=== PATIENT | female | born 1990 | race African-American/Black ===

== ENCOUNTER 2017-10-18 03:22 | Emergency (ER) | payer MEDICAID, OTHER ==
[~2017-10-18] VITALS: Ht 162.6 cm; Wt 105.0 kg
[2017-10-18 03:23] VITALS: BP 144/90; PULSE 113; RESP 16; TEMP 98.9; O2SAT 98
[2017-10-18] MEDS ORDERED: DICL75TA PO (04:34)
[2017-10-18] MEDS ORDERED: BACT800T5 PO (04:34)
--- NOTE | 2017-10-18 04:41 | PD ---
HPI Chief Complaint: Skin Problem Time Seen by Provider: 04:22 Travel History International Travel<30 days: No Contact w/Intl Traveler<30days: No Traveled to known affect area: No History of Present Illness HPI 27-year-old black female presents to emergency Department with complaints of right little toe pain today. She states that she is visiting a friend here in [facility] for the next week. She noticed some tenderness and swelling to her right little toe as she was walking today. When she went to bed and woke up it was increasingly painful, red and swollen. She presents today for evaluation. Patient denies any fever or chills. No direct trauma. No numbness, tingling or weakness. No prior injury. Denies diabetes. PFSH Past Medical History Diminished Hearing: No Gastrointestinal Disorders: Yes (Chrons) Tetanus Vaccination: Unknown Influenza Vaccination: No ?: Unknown LMP: 09/21/2017 Past Surgical History Gynecologic Surgery: Yes (cyst removed from ovary) Social History Alcohol Use: Yes (occasionally) Tobacco Use: No Substance Use: No Allergies-Medications (Allergen,Severity, Reaction): Coded Allergies: No Known Allergies (Unverified , 10/18/17) Reported Meds & Prescriptions Reported Meds & Active Scripts Active Diclofenac Sodium DR (Diclofenac Sodium) 75 Mg Tabdr 75 Mg PO BID Bactrim DS (Sulfamethoxazole-Trimethoprim) 800-160 Mg Tab 1 Tab PO BID Review of Systems General / Constitutional: No: Fever Eyes: No: Visual changes HENT: No: Headaches Cardiovascular: No: Chest Pain or Discomfort Respiratory: No: Shortness of Breath Gastrointestinal: No: Abdominal Pain Genitourinary: No: Dysuria Musculoskeletal: Positive: Edema, Pain, No: Limited ROM, Weakness Skin: Positive Rash (redness) Neurologic: No: Weakness Psychiatric: No: Depression Endocrine: No: Polydipsia Hematologic/Lymphatic: No: Easy Bruising Physical Exam Narrative GENERAL: This is a well-nourished, well-developed patient, in no apparent distress. SKIN: No rashes, ecchymoses or lesions. Warm and dry. HEAD: Atraumatic. Normocephalic. EYES: PERRL, EOMI, no discharge or injection. No scleral icterus. EARS: Clear NOSE: Nasal turbinates appear normal. THROAT: Mucosa pink and moist. Airway patent. NECK: Trachea midline. supple, moves head freely. LUNGS: Clear to auscultation. CV: Regular in rhythm. ABDOMEN: Soft nontender. EXT: No clubbing cyanosis. Examination right lower extremity reveals mild erythema and edema around the base of the nailbed of the little toe. There is no fluctuance or pointing. The nail is intact. Remainder of the foot is unremarkable. She has good sensation and good Refill. Data Data Last Documented VS Vital Signs Date Time Temp Pulse Resp B/P (MAP) Pulse Ox O2 Delivery O2 Flow Rate FiO2 10/18/17 03:23 98.9 113 16 144/90 (108) 98 Room Air Orders Orders Sulfamet-Trimeth Ds 800-160 Mg (Bactrim (10/18/17 04:45) Naproxen (Naprosyn) (10/18/17 04:45) Ed Discharge Order (10/18/17 04:34) [facility] Medical Decision Making Medical Screen Exam Complete: Yes Emergency Medical Condition: Yes Medical Record Reviewed: Yes Differential Diagnosis Differential diagnoses: Fracture, sprain, strain, gout, paronychia Narrative Course The patient's history and exam is more consistent with a paronychia. Patient is given Bactrim DS and Naprosyn 500 mg by mouth. There is no abscess that is drainable at this time. Diagnosis Primary Impression: right little toe paronychia Referrals: [facility] 3 days Patient Instructions: General Instructions Additional Instructions: Rest. Elevation. Soaked salts twice daily. Bactrim DS and diclofenac. Recheck in the next 2-3 days either by a integration software developer or the [place] [facility]. Return to the ER if any problems develop or worsening symptoms. Med/Other Pt SpecificInfo: Prescription(s) given Scripts Diclofenac Sodium (Diclofenac Sodium DR) 75 Mg Tabdr 75 MG PO BID, #14 TAB 0 Refills Prov: Kajal Eaton MD 10/18/17 Sulfamethoxazole-Trimethoprim (Bactrim DS) 800-160 Mg Tab 1 TAB PO BID for Infection, #14 TAB 0 Refills Prov: Kajal Eaton MD 10/18/17 Disposition: 01 DISCHARGE HOME Condition: Stable Manuel Hand Oct 18, 2017 04:41
[2017-10-18] MEDS ORDERED: NAPROXEN 500 MG TAB PO ONE (04:45)
[2017-10-18] MEDS ORDERED: SULFAMETHOXAZOLE-TRIMETHOPRIM DS 800-160 MG TAB PO ONE (04:45)
== END 2017-10-18 05:03 | disposition home or self-care (01) ==
LOC: NEPD 03:22
DX: L03.039 Cellulitis of unspecified toe (principal); K50.90 Crohn's disease, unspecified, without complications
CPT/HCPCS: 99284

== ENCOUNTER 2018-01-06 09:16 | Emergency (ER) | payer MEDICAID ==
[~2018-01-06] VITALS: Ht 160 cm; Wt 100.0 kg
[~2018-01-06 09:16] MED LIST: BACT800T5 PO; DICL75TA PO
[2018-01-06 09:24] VITALS: BP 125/69; PULSE 99; RESP 18; TEMP 98.8; O2SAT 99
[2018-01-06] MEDS ORDERED: SODIUM CHLOR 0.9% 1000 ML INJ 1,000 ML IV SCH (09:34)
--- NOTE | 2018-01-06 09:34 | PD ---
HPI Chief Complaint: GI Complaint Time Seen by Provider: 09:31 Travel History International Travel<30 days: No Contact w/Intl Traveler<30days: No Traveled to known affect area: No History of Present Illness HPI Patient complains of a 2 day history of nausea and occasional vomiting. Patient explicitly denies any diarrhea, loose stools, discoloration of stool, or any abdominal pain... No alleviating or aggravating factors. No associated factors such as fever, rash, diarrhea, headache, neck stiffness, neck pain, chest pain, abdominal pain, or back pain. No known drug allergy Past medical history significant only for Crohn's disease not currently on her medications Past surgical history significant for ovarian cyst removal PFS Past Medical History Diminished Hearing: No Gastrointestinal Disorders: Yes (Chrons) ?: Not LMP: 12/14/17 Past Surgical History Gynecologic Surgery: Yes (cyst removed from ovary) Social History Alcohol Use: Yes (occasionally) Tobacco Use: No Substance Use: No Allergies-Medications (Allergen,Severity, Reaction): Coded Allergies: No Known Allergies (Unverified , 10/18/17) Reported Meds & Prescriptions Reported Meds & Active Scripts Active Diclofenac Sodium DR (Diclofenac Sodium) 75 Mg Tabdr 75 Mg PO BID Bactrim DS (Sulfamethoxazole-Trimethoprim) 800-160 Mg Tab 1 Tab PO BID Review of Systems General / Constitutional: No: Fever Eyes: No: Visual changes HENT: No: Headaches Cardiovascular: No: Chest Pain or Discomfort Respiratory: No: Shortness of Breath Gastrointestinal: Positive: Nausea, Vomiting Genitourinary: No: Dysuria Musculoskeletal: No: Pain Skin: No Rash Neurologic: No: Weakness Psychiatric: No: Depression Endocrine: No: Polydipsia Hematologic/Lymphatic: No: Easy Bruising Physical Exam Narrative GENERAL: SKIN: Warm and dry. HEAD: Atraumatic. Normocephalic. EYES: Pupils equal and round. No scleral icterus. No injection or drainage. ENT: No nasal bleeding or discharge. Mucous membranes pink and moist. NECK: Trachea midline. No JVD. CARDIOVASCULAR: Regular rate and rhythm. RESPIRATORY: No accessory muscle use. Clear to auscultation. Breath sounds equal bilaterally. GASTROINTESTINAL: Abdomen soft, non-tender, nondistended. MUSCULOSKELETAL: Extremities without clubbing, cyanosis, or edema. No obvious deformities. NEUROLOGICAL: Awake and alert. No obvious cranial nerve deficits. Motor grossly within normal limits. Five out of 5 muscle strength in the arms and legs. Normal speech. PSYCHIATRIC: Appropriate mood and affect; insight and judgment normal. Data Data Last Documented VS Vital Signs Date Time Temp Pulse Resp B/P (MAP) Pulse Ox O2 Delivery O2 Flow Rate FiO2 01/06/18 10:33 86 18 103/63 (76) 98 01/06/18 09:24 98.8 Orders Orders Complete Blood Count With Diff (01/06/18 09:34) Comprehensive Metabolic Panel (01/06/18:34) Lipase (01/06/18:34) Urinalysis - C+S If Indicated (01/06/18:34) Iv Access Insert/Monitor (01/06/18:34) Ecg Monitoring (01/06/18:34) Oximetry (01/06/18:34) NPO (01/06/18:34) Ondansetron Inj (Zofran Inj) (01/06/18 09:45) Sodium Chlor 0.9% 1000 Ml Inj (Ns 1000 M (01/06/18 09:34) Ed Urine Pregnancytest Poc (01/06/18 09:34) Labs Laboratory Tests Test 01/06/18 09:40 White Blood Count 7.7 TH/MM3 Red Blood Count 5.15 MIL/MM3 Hemoglobin 12.8 GM/DL Hematocrit 39.1 % Mean Corpuscular Volume 75.8 FL Mean Corpuscular Hemoglobin 24.9 PG Mean Corpuscular Hemoglobin Concent 32.8 % Red Cell Distribution Width 15.5 % Platelet Count 195 TH/MM3 Mean Platelet Volume 9.2 FL Neutrophils (%) (Auto) 23.8 % Lymphocytes (%) (Auto) 65.2 % Monocytes (%) (Auto) 9.0 % Eosinophils (%) (Auto) 1.6 % Basophils (%) (Auto) 0.4 % Neutrophils # (Auto) 1.8 TH/MM3 Lymphocytes # (Auto) 5.1 TH/MM3 Monocytes # (Auto) 0.7 TH/MM3 Eosinophils # (Auto) 0.1 TH/MM3 Basophils # (Auto) 0.0 TH/MM3 CBC Comment AUTO DIFF Urine Color YELLOW Urine Turbidity HAZY Urine pH 6.0 Urine Specific [place] 1.014 Urine Protein TRACE mg/dL Urine Glucose (UA) NEG mg/dL Urine Ketones NEG mg/dL Urine Occult Blood MOD Urine Nitrite NEG Urine Bilirubin NEG Urine Urobilinogen LESS THAN 2.0 MG/DL Urine Leukocyte Esterase LARGE Urine RBC 8 /hpf Urine WBC 7 /hpf Urine Squamous Epithelial Cells 10 /hpf Urine Bacteria RARE /hpf Urine Mucus FEW /lpf Microscopic Urinalysis Comment CULT NOT INDICATED Blood Urea Nitrogen 8 MG/DL Creatinine 0.75 MG/DL Random Glucose 91 MG/DL Total Protein 7.9 GM/DL Albumin 3.3 GM/DL Calcium Level 8.7 MG/DL Alkaline Phosphatase 93 U/L Aspartate Amino Transf (AST/SGOT) 37 U/L Alanine Aminotransferase (ALT/SGPT) 28 U/L Total Bilirubin 0.8 MG/DL Sodium Level 136 MEQ/L Potassium Level 3.6 MEQ/L Chloride Level 104 MEQ/L Carbon Dioxide Level 22.5 MEQ/L Anion Gap 10 MEQ/L Estimat Glomerular Filtration Rate 114 ML/MIN Lipase 53 U/L MDM Medical Decision Making Medical Screen Exam Complete: Yes Emergency Medical Condition: Yes Medical Record Reviewed: Yes Differential Diagnosis Viral gastroenteritis versus bacterial gastroenteritis versus pancreatitis versus electrolyte imbalance versus related Narrative Course CBC does not show any evidence of leukocytosis, anemia, no left shift, and normal platelet count UA shows evidence of large leukocyte esterase along with 10 squamous epithelial cells and rare bacteria this is most likely a poor specimen collection, Rather than infection Chemistry profile shows normal electrolytes, normal kidney/liver/pancreatic functions. Diagnosis Primary Impression: Dyspepsia Patient Instructions: Acute Nausea and Vomiting (ED), Full Liquid Diet (DC), General Instructions Scripts Ondansetron Odt (Zofran Odt) 4 Mg Tab 4 MG SL Q8HR Y for Nausea/Vomiting, #21 TAB 0 Refills Prov: Omar Whaley MD 01/06/18 Disposition: 01 DISCHARGE HOME Condition: Stable Omar Whaley MD Jan 06, 2018 09:34
[2018-01-06 09:45] VITALS: BP 127/63; PULSE 100; RESP 18; O2SAT 100
[2018-01-06] MEDS ORDERED: ONDANSETRON HCL 4 MG/2 ML VIAL IVP ONE (09:45)
[2018-01-06 10:10] LABS: AUTOMATED NEUTROPHIL # 1.8 TH/MM3 (1.8-7.7); BASOPHIL % 0.4 % (0.0-2.0); EOSINOPHIL # 0.1 TH/MM3 (0-0.4); EOSINOPHIL % 1.6 % (0.0-4.0); HEMATOCRIT 39.1 % (35.0-46.0); HEMOGLOBIN 12.8 GM/DL (11.6-15.3); LYMPH % 65.2 % (9.0-44.0); LYMPHOCYTE # 5.1 TH/MM3 (1.0-4.8); MEAN CELL VOLUME 75.8 FL (80.0-100.0); MEAN CORPUSCULAR HEMOGLOBIN 24.9 PG (27.0-34.0); MEAN CORPUSCULAR HGB CONC 32.8 % (32.0-36.0); MEAN PLATELET VOLUME 9.2 FL (7.0-11.0); MONOCYTE # 0.7 TH/MM3 (0-0.9); NEUT % 23.8 % (16.0-70.0); PLATELET COUNT 195 TH/MM3 (150-450); RED BLOOD COUNT 5.15 MIL/MM3 (4.00-5.30); RED CELL DISTRIBUTION WIDTH 15.5 % (11.6-17.2); WHITE BLOOD COUNT 7.7 TH/MM3 (4.0-11.0)
[2018-01-06 10:16] LABS: BACTERIA, URINE RARE /hpf; BILIRUBIN, URINE NEG (NEG); BLOOD, URINE MOD (NEG); GLUCOSE,URINE NEG (NEG); KETONE, URINE NEG (NEG); MUCUS URINE FEW /lpf (OCC); NITRITE,URINE NEG (NEG); SQUAMOUS EPITHELIAL CELL URINE 10 /hpf (0-5); URINE COLOR YELLOW (YELLW/STRAW); URINE LEUKOCYTE ESTERASE LARGE (NEG)
[2018-01-06 10:33] VITALS: BP 103/63; PULSE 86; RESP 18; O2SAT 98
[2018-01-06 10:36] LABS: ALBUMIN 3.3 GM/DL (3.4-5.0); ALT (GPT) 28 U/L (10-53); AST (GOT) 37 U/L (15-37); BICARBONATE 22.5 MEQ/L (21.0-32.0); BLOOD UREA NITROGEN 8 MG/DL (7-18); CALCIUM 8.7 MG/DL (8.5-10.1); CHLORIDE 104 MEQ/L (98-107); CREATININE 0.75 MG/DL (0.50-1.00); GLOMERULAR FILTRATION RATE 114 ML/MIN (>89); GLUCOSE,RANDOM 91 MG/DL (74-106); SODIUM (NA) 136 MEQ/L (136-145)
[2018-01-06 10:39] LABS: ALKALINE PHOSPHATASE 93 U/L (45-117); TOTAL BILIRUBIN ADULT 0.8 MG/DL (0.2-1.0); TOTAL PROTEIN 7.9 GM/DL (6.4-8.2)
[2018-01-06] MEDS ORDERED: ZOFR4TAB3 SL (11:00)
[2018-01-06 11:38] LABS: ATYPICAL LYMPHOCYTES 26 % (0-0); BANDS 5 % (0-6); LYMPHOCYTES 43 % (9-44); MONOCYTES 4 % (0-8); NEUTROPHIL # MANUAL DIFF 2.1 TH/MM3 (1.8-7.7); POLYS (SEG NEUTROPHILS) 22 % (16-70)
== END 2018-01-06 11:09 | disposition home or self-care (01) ==
LOC: NEPD 09:16
DX: R10.13 Epigastric pain (principal)
CPT/HCPCS: 80053; 81001; 83690; 84703; 85007; 85027; 96374; 99284; J2405; J7030